=== PATIENT | female | born 1970 | race Two or more races ===

== ENCOUNTER 2019-06-29 11:30 | Inpatient (IN) | payer OTHER ==
[~2019-06-29] VITALS: Ht 154.9 cm; Wt 112.5 kg
[2019-07-05] MEDS ORDERED: XARELTO20 MG PO (14:32)
== END 2019-07-09 08:00 | disposition home or self-care (01) | DRG 741 ==
LOC: ADM 11:30 → EDSTATUS 07-05 12:45 → SURH 07-08 06:00 → O/R 07-08 06:00 → OB/GYN 07-08 06:00 → O/R 07-08 07:00 → CIR.AMB 07-08 07:00 → SURH 07-08 09:45 → EDSTATUS 07-08 12:45 → SURH 07-08 12:45 → O/R 07-08 12:59 → OB/GYN 07-08 12:59 → O/R 07-09 08:00 → CIR.AMB 07-09 08:00 → OB/GYN 07-09 15:01
PROVIDERS: ADMIT Obstetrics & Gynecology Gynecologic Oncology; ATTEND Obstetrics & Gynecology Gynecologic Oncology
PROC: 0UT24ZZ Resection of Bilateral Ovaries, Percutaneous Endoscopic Approach (ICD-10-PCS; 2019-07-08)
PROC: 0UT74ZZ Resection of Bilateral Fallopian Tubes, Percutaneous Endoscopic Approach (ICD-10-PCS; 2019-07-08)
PROC: 07BC4ZX Excision of Pelvis Lymphatic, Percutaneous Endoscopic Approach, Diagnostic (ICD-10-PCS; 2019-07-08)
PROC: 0UT94ZZ Resection of Uterus, Percutaneous Endoscopic Approach (ICD-10-PCS; principal; 2019-07-08 09:45)
DX: C54.1 Malignant neoplasm of endometrium (principal)